=== PATIENT | female | born 1985 | race Caucasian/White ===

== ENCOUNTER → 2020-02-09 | Outpatient (CLI) | payer OTHER | LOC: LAB 13:51 | PROVIDERS: ATTEND Anesthesiology | DX: Z01.812 Encounter for preprocedural laboratory examination (principal); Z20.828 Contact with and (suspected) exposure to other viral communicable diseases ==

== ENCOUNTER → 2020-03-01 | Outpatient (CLI) | payer OTHER | LOC: LAB 14:22 | PROVIDERS: ATTEND Anesthesiology | DX: Z01.812 Encounter for preprocedural laboratory examination (principal); Z20.828 Contact with and (suspected) exposure to other viral communicable diseases ==